=== PATIENT | male | born 1950 | race Caucasian/White ===

== ENCOUNTER 2018-05-26 05:22 | Inpatient (IN) | payer MEDICARE, BC ==
[2018-05-26] MEDS ORDERED: BUPIVACAINE 0.5% (SDV) 30 ML, morphine SULFATE (PF) 8 MG, EPINEPHrine 0.3 MG, KETOROLAC... IRR (06:00)
[2018-05-26] MEDS ORDERED: TRANEXAMIC ACID 1,000 MG in DEXTROSE 5% 100 ML IVPB (06:00)
[2018-05-26] MEDS ORDERED: CEFAZOLIN 2 GM/50 ML (PMX) 50 ML IVPB (06:00)
[2018-05-26] MEDS: GABAPENTIN 300 MG CAP PO ×2 (06:04→20:53)
[2018-05-26] MEDS: DEXAMETHASONE 1 MG TAB PO (06:04)
[2018-05-26] MEDS ORDERED: THROMBIN 5000 UNIT VIAL (06:46)
[2018-05-26] MEDS: POLYMYXIN/BACITRACIN 1L IRRIG (06:47)
[2018-05-26] MEDS ORDERED: CA CHLORIDE (GM) 10% 10 ML INJ (06:47)
[2018-05-26] MEDS ORDERED: DIPHENHYDRAMINE 50 MG INJ IV ×2 (07:00→09:00)
[2018-05-26] MEDS ORDERED: FENTAnyl 50 MCG/ML VIAL IV ×3 (07:00)
[2018-05-26] MEDS ORDERED: ROPIVACAINE 0.5 % 30 ML VIAL (07:00)
[2018-05-26] MEDS ORDERED: hydrALAzine 20 MG INJ IV (07:00)
[2018-05-26] MEDS ORDERED: ALBUTEROL 0.083% (NEB) 2.5 MG/3 ML AMP HHN (07:00)
[2018-05-26] MEDS ORDERED: ONDANSETRON 4 MG INJ IV ×2 (07:00→09:00)
[2018-05-26] MEDS ORDERED: TRIMETHOBENZAMIDE 100 MG/ML VIAL IM (07:00)
[2018-05-26] MEDS ORDERED: FENTAnyl 50 MCG/ML VIAL (07:00)
[2018-05-26] MEDS ORDERED: LABETALOL HCL 20MG INJ IV (07:00)
[2018-05-26] MEDS ORDERED: MIDAZOLAM 1 MG/ML 2 ML INJ IV (07:00)
[2018-05-26] MEDS ORDERED: DESFLURANE 15 MIN (07:00)
[2018-05-26] MEDS ORDERED: NEOSTIGMINE 3 MG/3 ML SYRINGE (07:00)
[2018-05-26] MEDS ORDERED: MEPERIDINE 25 MG INJ IV (07:00)
[2018-05-26] MEDS ORDERED: DEXAMETHASONE 4 MG/ML 5 ML INJ (07:00)
[2018-05-26] MEDS ORDERED: IPRATROPIUM (NEB) 0.5 MG/2.5 ML AMP HHN (07:00)
[2018-05-26] MEDS ORDERED: HYDROmorphONE 1 MG/5 ML IV SYRINGE IV ×3 (07:00)
[2018-05-26] MEDS ORDERED: CEFAZOLIN 1 GM INJ (07:00)
[2018-05-26] MEDS ORDERED: EPHEDrine SULFATE 50 MG/5 ML SYG IV (07:00)
[2018-05-26] MEDS ORDERED: ONDANSETRON 4 MG INJ (07:00)
[2018-05-26] MEDS ORDERED: MIDAZOLAM 1 MG/ML 2 ML INJ (07:00)
[2018-05-26] MEDS ORDERED: SUGAMMADEX SODIUM 200 MG/2 ML VIAL IV (07:00)
[2018-05-26] MEDS ORDERED: SUCCINYLCHOLINE CHLORIDE 100 MG/5 ML SYG IV (07:00)
[2018-05-26] MEDS ORDERED: METOCLOPRAMIDE 10 MG INJ (07:00)
[2018-05-26] MEDS ORDERED: GLYCOPYRROLATE 0.4 MG INJ (07:00)
[2018-05-26] MEDS ORDERED: PROPOFOL 20 ML (07:00)
[2018-05-26] MEDS ORDERED: ROCURONIUM 50 MG INJ (07:00)
[2018-05-26] MEDS ORDERED: TRIAMCINOLONE ACET 40 MG/ML INJ (07:11)
[2018-05-26] MEDS ORDERED: HYDROmorphONE 1 MG/ML SYG IV (09:00)
[2018-05-26] MEDS ORDERED: LOPERAMIDE 2 MG CAP PO (09:00)
[2018-05-26] MEDS ORDERED: NACL 0.9% 3 ML SYG IV (09:00)
[2018-05-26] MEDS ORDERED: ZOLPIDEM 5 MG TAB PO (09:00)
[2018-05-26] MEDS ORDERED: oxyCODONE 5 MG TAB PO (09:00)
[2018-05-26] MEDS: CEFAZOLIN 1 GM/50 ML (PMX) 50 ML IVPB ×2 (09:12→17:04)
[2018-05-26] MEDS: TRANEXAMIC ACID 1,000 MG in SOD CHLORIDE 0.9% 100 ML IVPB (09:42)
[2018-05-26] MEDS: ATENOLOL 50 MG TAB PO (12:55)
[2018-05-26] MEDS: LISINOPRIL 20 MG TAB PO (12:56)
[2018-05-26] MEDS: DEXAMETHASONE 2 MG TAB PO ×2 (13:27→17:38)
[2018-05-26] MEDS: ACETAMINOPHEN 500 MG TAB PO ×2 (13:27→18:00)
[2018-05-26] MEDS: SENNA/DOCUSATE NA (8.6MG/50MG) TAB PO ×2 (13:27→20:53)
[2018-05-26] MEDS: oxyCODONE 5 MG TAB PO (23:10)
[2018-05-27] MEDS: CEFAZOLIN 1 GM/50 ML (PMX) 50 ML IVPB (01:01)
[2018-05-27] MEDS: DEXAMETHASONE 2 MG TAB PO ×2 (01:01→06:12)
[2018-05-27] MEDS: KETOROLAC 15 MG INJ IV (01:09)
[2018-05-27] MEDS: ACETAMINOPHEN 500 MG TAB PO ×2 (06:13)
[2018-05-27] MEDS: LISINOPRIL 20 MG TAB PO (07:07)
[2018-05-27] MEDS: ATENOLOL 50 MG TAB PO (07:08)
[2018-05-27] MEDS: SENNA/DOCUSATE NA (8.6MG/50MG) TAB PO (08:14)
[2018-05-27] MEDS: MAGNESIUM HYDROXIDE 30ML CUP PO (08:14)
[2018-05-27] MEDS: oxyCODONE 5 MG TAB PO (08:22)
== END 2018-05-27 09:55 | disposition home or self-care (01) | DRG 483 ==
LOC: REC 05:22 → MS1 11:50
PROC: 0RRK00Z Replacement of Left Shoulder Joint with Reverse Ball and Socket Synthetic Substitute, Open Approach (ICD-10-PCS; principal; 2018-05-26 07:00)
PROC: 0PBB0ZZ Excision of Left Clavicle, Open Approach (ICD-10-PCS; 2018-05-26 07:00)
DX: M19.012 Primary osteoarthritis, left shoulder (principal); M75.102 Unspecified rotator cuff tear or rupture of left shoulder, not specified as traumatic; I10 Essential (primary) hypertension; E78.5 Hyperlipidemia, unspecified; K21.9 Gastro-esophageal reflux disease without esophagitis; M51.9 Unspecified thoracic, thoracolumbar and lumbosacral intervertebral disc disorder
CPT/HCPCS: 73030; 86999; 88304; 88311; 97166